=== PATIENT | male | born 2000 | race African-American/Black ===

== ENCOUNTER 2024-11-22 02:27 | Emergency (ER) | payer MEDICAID ==
[~2024-11-22] VITALS: Ht 198.1 cm; Wt 99.1 kg
[2024-11-22 02:31] VITALS: O2SAT 99
[2024-11-22 02:54] VITALS: BP 128/56; PULSE 86; RESP 26; TEMP 36.6; O2SAT 97
[2024-11-22] MEDS ORDERED: MAGNESIUM/ALUMINUM HYDROXIDE/SIMETHICONE 30ML UDC PO ONE (03:15)
[2024-11-22] MEDS ORDERED: VISCOUS LIDOCAINE 2% 15 ML UDC MM ONE (03:15)
[2024-11-22 03:26] LABS: CLARITY URINE CLEAR (CLEAR); COLOR URINE YELLOW (YELLOW); GLUCOSE URINE NEGATIVE (NEGATIVE); KETONES URINE NEGATIVE (NEGATIVE); LEUKOCYTE ESTERASE URINE NEGATIVE (NEGATIVE); NITRITE URINE NEGATIVE (NEGATIVE); OCCULT BLOOD URINE NEGATIVE (NEGATIVE); PH URINE 6.5 (4.5-8.0); PROTEIN URINE NEGATIVE (NEGATIVE); SPECIFIC GRAVITY URINE 1.022 (1.005-1.030); UROBILINOGEN URINE 0.2 E.U./dL (0.2-1.0)
[2024-11-22 03:34] LABS: *AMPHETAMINES SCREEN URINE NEGATIVE (NEGATIVE); *BARBITURATES SCREEN URINE NEGATIVE (NEGATIVE); *BENZODIAZEPINES SCREEN URINE NEGATIVE (NEGATIVE); *COCAINE SCREEN URINE NEGATIVE (NEGATIVE); CANNABINOID URINE SCREEN PRESUMPTIVE POSITIVE (NEGATIVE); ECSTASY MDMA SCREEN URINE NEGATIVE (NEGATIVE); METHADONE URINE SCREEN NEGATIVE (NEGATIVE); OPIATES URINE SCREEN NEGATIVE (NEGATIVE); PHENCYCLIDINE URINE SCREEN NEGATIVE (NEGATIVE)
== END 2024-11-22 03:23 | disposition left against medical advice (07) ==
LOC: ER 02:27
DX: R10.13 Epigastric pain (principal); R11.0 Nausea; Z79.899 Other long term (current) drug therapy
CPT/HCPCS: 80305; 81003; 82962; 99283

== ENCOUNTER 2024-11-28 10:09 | Emergency (ER) | payer MEDICAID ==
[~2024-11-28] VITALS: Ht 200.7 cm; Wt 93.0 kg
[~2024-11-28 10:09] MED LIST: CHLORHEXIDINE; CLIN-26 PO; DOXY100C5 PO
[2024-11-28 10:48] VITALS: O2SAT 100
[2024-11-28] MEDS: ACETAMINOPHEN 500MG TABLET PO ONE (11:00)
[2024-11-28] MEDS: ONDANSETRON HCL 4MG/2ML INJ IV ONE (11:00)
[2024-11-28] MEDS: KETOROLAC 15MG/ML VIAL IV ONE (11:00)
[2024-11-28] MEDS: SODIUM CHLORIDE 0.9% 1,000 ML IV ONE (11:29)
[2024-11-28 12:01] LABS: BASOPHILS % 0.2 % (0.0-2.0); EOSINOPHILS % 0.5 % (0.0-5.0); HEMATOCRIT. 41.4 % (42.0-52.0); HEMOGLOBIN. 13.6 g/dL (14.0-18.0); LYMPHOCYTES % 14.7 % (20.0-50.0); MEAN PLATELET VOLUME 8.1 fl (7.4-10.4); MONOCYTES % 7.2 % (2.0-8.0); NEUTROPHILS % 77.4 % (40.0-76.0); PLATELET 162 x1000/uL (130-400); RED BLOOD CELL COUNT 4.96 mill/uL (4.7-6.1); RED CELL DISTRIBUTION WIDTH 13.2 % (11.6-14.6)
[2024-11-28 12:13] LABS: CREATININE 0.8 mg/dL (0.6-1.3)
[2024-11-28 12:14] LABS: UREA NITROGEN BLOOD 11 mg/dL (9-23)
[2024-11-28 12:42] VITALS: BP 135/79; PULSE 49; RESP 17; TEMP 37; O2SAT 100
== END 2024-11-28 12:50 | disposition home or self-care (01) ==
LOC: ER 10:09 → CANBEDREQ 12:46 → ER 12:50
DX: R51.9 Headache, unspecified (principal); R07.9 Chest pain, unspecified
CPT/HCPCS: 99285; 96374; 70450; 96361; 96375; 80048; 85025; 36415; 93005; J1885; J2405; J7030

== ENCOUNTER 2024-12-08 20:43 | Emergency (ER) | payer MEDICAID ==
[~2024-12-08] VITALS: Ht 200.7 cm; Wt 91.0 kg
[2024-12-08 20:52] VITALS: O2SAT 100
[2024-12-08] MEDS ORDERED: ACETAMINOPHEN 500MG TABLET PO ONE (21:30)
[2024-12-08 23:08] LABS: BASOPHILS % 0.4 % (0.0-2.0); EOSINOPHILS % 0.8 % (0.0-5.0); HEMATOCRIT. 46.9 % (42.0-52.0); HEMOGLOBIN. 15.7 g/dL (14.0-18.0); LYMPHOCYTES % 26.3 % (20.0-50.0); MEAN PLATELET VOLUME 8.0 fl (7.4-10.4); MONOCYTES % 10.3 % (2.0-8.0); NEUTROPHILS % 62.2 % (40.0-76.0); PLATELET 249 x1000/uL (130-400); RED BLOOD CELL COUNT 5.60 mill/uL (4.7-6.1); RED CELL DISTRIBUTION WIDTH 13.4 % (11.6-14.6)
[2024-12-08] MEDS: ACETAMINOPHEN 500MG TABLET PO NR (23:14)
[2024-12-08 23:21] LABS: CREATININE 0.9 mg/dL (0.6-1.3); UREA NITROGEN BLOOD 10 mg/dL (9-23)
[2024-12-09 03:07] VITALS: BP 154/81; PULSE 96; RESP 17; TEMP 37.4; O2SAT 99
== END 2024-12-09 03:25 | disposition short-term general hospital (02) ==
LOC: ER 20:43 → CMPBEDREQ 12-09 05:01
DX: H49.20 Sixth [abducent] nerve palsy, unspecified eye (principal)
CPT/HCPCS: 36415; 70480; 80048; 85025; 99285